=== PATIENT | male | born 1935 | race Caucasian/White ===

== ENCOUNTER 2024-09-09 12:55 | Inpatient (IN) | payer OTHER, MEDICARE ==
[2024-09-09] MEDS ORDERED: DEXTROSE 50%-WATER 25 GM/50 ML DISP.SYRIN ONE (13:15)
[2024-09-09] MEDS: DEXTROSE 50%-WATER - 25 GM/50 ML VIAL IVPUSH ONE (13:17)
[2024-09-09 13:28] VITALS: BMI 27.6
[2024-09-09] MEDS: DEXTROSE 50%-WATER 25 GM/50 ML DISP.SYRIN IVPUSH ONE (14:11)
[2024-09-09 14:22] LABS: ABSOLUTE IMMATURE GRANULOCYTES 0.05 x10^3/uL (0.0-0.031); BASOPHILS # 0.05 x10^3/uL (0.01-0.08); EOSINOPHIL % 3.7 % (0.8-7.0); EOSINOPHILS # 0.32 x10^3/uL (0.04-0.54); HEMATOCRIT 35.4 % (40.1-51.0); HEMOGLOBIN 11.3 g/dL (13.7-17.5); MCHC 31.9 g/dl (32.3-36.5); MEAN PLT VOLUME 8.7 fl (9.4-12.4); MONOCYTE % 3.4 % (5.3-12.2); PLATELET COUNT 389 x10^3/uL (163-337); RDW 15.1 % (12.6-16.6)
[2024-09-09 14:35] LABS: POTASSIUM 5.2 mmol/L (3.5-5.1)
[2024-09-09 14:38] LABS: BLOOD UREA NITROGEN 18.7 mg/dL (7-18); CALCIUM 8.3 mg/dL (8.5-10.1)
[2024-09-09 14:42] LABS: CREATININE 1.4 mg/dL (0.55-1.3)
[2024-09-09 14:43] LABS: BILIRUBIN,TOTAL 0.5 mg/dL (0.2-1); TOT PROT 7.5 g/dl (6.4-8.2)
[2024-09-09] MEDS ORDERED: PIPERACILLIN/TAZOB 4.5 GM 4.5 GM in DEXTROSE 5%-WATER 100 ML IVPB ONE (14:49)
[2024-09-09 15:11] LABS: EPI CELLS 4 /uL (0-25.1); HYALINE CASTS 2 /uL (0-3.1); PH,URINE 5.5 (5.0-8.0); URINE APPEARANCE CLEAR; URINE BACTERIA 204 /uL (0-1359); URINE BILIRUBIN NEGATIVE (NEGATIVE); URINE COLOR YELLOW; URINE GLUCOSE (UA) NEGATIVE (NEGATIVE); URINE KETONE TRACE (NEGATIVE); URINE LEUK ESTERASE 2+ (NEGATIVE); URINE NITRITE NEGATIVE (NEGATIVE); URINE PROTEIN 1+ (NEGATIVE); URINE RBC 32 /uL (0-23.9); URINE UROBILINOGEN 0.2 mg/dL (0.2-1.0); URINE WBC 842 /uL (0-25.8)
[2024-09-09] MEDS ORDERED: MEROPENEM 1 GM VIAL (RESTRICTED TO ID) IVPB ONE (15:37)
[2024-09-09] MEDS: MEROPENEM 1 GM in DEXTROSE 5%-WATER 100 ML IVPB ONE (15:42)
[2024-09-09] MEDS: VANCOMYCIN PREMIX 1.75 GM 1,750 MG/350 ML PIGGYBACK IVPB ONE (16:40)
[2024-09-09] MEDS: DEXTROSE 5%-NORMAL SALINE 1,000 ML IV SCH ×2 (18:12→18:13)
[2024-09-09 18:20] LABS: MAGNESIUM 1.6 mg/dL (1.8-2.4)
[2024-09-09] MEDS ORDERED: POLYETHYLENE GLYCOL (HEALTHYLAX) 3350 17 GM PACKET PO PRN (19:31)
[2024-09-09] MEDS ORDERED: ALBUTEROL SO4 0.5 % INH SOLN 2.5 MG/0.5 ML VIAL.NEB. NEB PRN (19:31)
[2024-09-09] MEDS ORDERED: INSULIN ASPART SLIDING SCALE (NOVOLOG) 1 VIAL SQ SCH (22:00)
[2024-09-09] MEDS: INSULIN ASPART SLIDING SCALE (NOVOLOG) 1 VIAL SQ SCH (22:13)
[2024-09-09] MEDS: DIVALPROEX SODIUM 125 MG TABLET E.C. PO SCH (22:13)
[2024-09-09] MEDS: ACETAMINOPHEN 325 MG TABLET (FP) PO SCH (22:14)
[2024-09-09] MEDS: ZINC OXIDE 20% TOPICAL OINTMENT 30 GM TUBE TP SCH (22:15)
[2024-09-10] MEDS: PIPERACILLIN/TAZOB 3.375 GM 50 ML IVPB SCH (03:01)
[2024-09-10 06:56] LABS: POTASSIUM 4.5 mmol/L (3.5-5.1)
[2024-09-10 06:58] LABS: CALCIUM 8.1 mg/dL (8.5-10.1)
[2024-09-10 06:59] LABS: BLOOD UREA NITROGEN 18.4 mg/dL (7-18); MAGNESIUM 1.4 mg/dL (1.8-2.4)
[2024-09-10 07:02] LABS: CREATININE 1.3 mg/dL (0.55-1.3); PHOSPHOROUS 2.9 mg/dL (2.5-4.9)
[2024-09-10 08:02] LABS: HEMATOCRIT 32.5 % (40.1-51.0); HEMOGLOBIN 10.1 g/dL (13.7-17.5); MCHC 31.1 g/dl (32.3-36.5); MEAN CELL VOLUME 92.6 fl (79.0-92.2); MEAN PLT VOLUME 8.8 fl (9.4-12.4); PLATELET COUNT 370 x10^3/uL (163-337); RDW 15.4 % (12.6-16.6)
[2024-09-10] MEDS: MAGNESIUM SULFATE IN WATER 2 GM/50 ML IVPB IVPB ONE (09:39)
[2024-09-10] MEDS: DIVALPROEX SODIUM 125 MG TABLET E.C. PO SCH (09:40)
[2024-09-10] MEDS: ENOXAPARIN NA (PORCINE) 40 MG/0.4 ML DISP.SYRIN SQ SCH (09:40)
[2024-09-10] MEDS: CEFTAZIDIME/AVIBACTAM 1.25 GM in DEXTROSE 5%-WATER - 100 ML IVPB SCH (14:41)
[2024-09-10] MEDS: PIPERACILLIN/TAZOB 3.375 GM 3.375 GM in DEXTROSE 5%-WATER - 50 ML IVPB SCH (14:42)
[2024-09-10] MEDS: DOXYCYCLINE INJECTION 100 MG in DEXTROSE 5%-WATER 100 ML IVPB SCH (14:51)
[2024-09-10] MEDS ORDERED: DEXTROSE 50%-WATER - 25 GM/50 ML VIAL IVPUSH PRN (14:53)
[2024-09-10 15:35] VITALS: RESP 18
[2024-09-10] MEDS: SODIUM CHLORIDE 1,000 ML IV STA (16:02)
[2024-09-10] MEDS: CEFTRIAXONE 1 G/50 ML PREMIX 50 ML IVPB SCH (18:02)
[2024-09-10] MEDS: SILVER SULFADIAZINE 1% TOP CREAM 50 GM JAR TP SCH (18:02)
[2024-09-10] MEDS: LORazepam 2 MG/ML SDV VIAL IVPUSH PRN (20:21)
[2024-09-10] MEDS ORDERED: levETIRAcetam 500 MG TABLET (FP) PO SCH (22:00)
[2024-09-11 06:47] LABS: HEMATOCRIT 32.4 % (40.1-51.0); HEMOGLOBIN 10.2 g/dL (13.7-17.5); MCHC 31.5 g/dl (32.3-36.5); MEAN CELL VOLUME 90.3 fl (79.0-92.2); MEAN PLT VOLUME 8.6 fl (9.4-12.4); PLATELET COUNT 348 x10^3/uL (163-337); RDW 14.9 % (12.6-16.6)
[2024-09-11 06:50] LABS: POTASSIUM 4.3 mmol/L (3.5-5.1)
[2024-09-11 06:52] LABS: ALBUMIN 1.8 g/dl (3.4-5.0)
[2024-09-11 06:53] LABS: BLOOD UREA NITROGEN 16.1 mg/dL (7-18)
[2024-09-11 06:56] LABS: CREATININE 1.1 mg/dL (0.55-1.3)
[2024-09-11 06:57] LABS: BILIRUBIN,TOTAL 0.2 mg/dL (0.2-1)
[2024-09-11] MEDS: LORazepam 2 MG/ML SDV VIAL IVPUSH ONE (09:20)
[2024-09-11 15:36] VITALS: BP 136/69; PULSE 83; TEMP 98.2
== END 2024-09-11 15:36 | DRG 100 ==
LOC: JER 12:55 → JERBED 16:27 → J4W 19:36 → OBSVTOIN 09-10 11:16
PROVIDERS: ADMIT Student in an Organized Health Care Education/Training Program; ATTEND Internal Medicine
DX: G40.89 Other seizures (principal); J18.9 Pneumonia, unspecified organism; F03.90 Unspecified dementia, unspecified severity, without behavioral disturbance, psychotic disturbance, mood disturbance, and anxiety; N18.30 Chronic kidney disease, stage 3 unspecified; E11.649 Type 2 diabetes mellitus with hypoglycemia without coma; E11.22 Type 2 diabetes mellitus with diabetic chronic kidney disease; F31.9 Bipolar disorder, unspecified; L89.152 Pressure ulcer of sacral region, stage 2
CPT/HCPCS: 0241U-QW; 36415; 70450-TC; 71045-TC-FY; 74230-TC-FY; 80048; 80053; 80164; 81003; 82140; 82550; 82962; 83036; 83605; 83735; 84100; 84484; 85025; 85027; 86850; 86900; 86901; 87040; 87081; 87086; 92611-GN; 93005; 93010; 95816; 99285-25; G0378; J3370

== ENCOUNTER 2024-10-20 18:41 | Inpatient (IN) | payer OTHER, MEDICARE ==
[2024-10-20] MEDS ORDERED: ACETAMINOPHEN 325 MG TABLET (FP) ONE (20:16)
[2024-10-20] MEDS ORDERED: ACETAMINOPHEN INJECTION 100 ML ONE (20:23)
[2024-10-20] MEDS: ACETAMINOPHEN 325 MG TABLET (FP) PO ONE (20:35)
[2024-10-20] MEDS: ACETAMINOPHEN 1000 MG/100 ML BAG IVPB ONE (20:35)
[2024-10-20 20:45] LABS: HEMATOCRIT 30.9 % (40.1-51.0); HEMOGLOBIN 10.1 g/dL (13.7-17.5); MCHC 32.7 g/dl (32.3-36.5); MEAN CELL VOLUME 90.6 fl (79.0-92.2); MEAN PLT VOLUME 8.8 fl (9.4-12.4); PLATELET COUNT 556 x10^3/uL (163-337); RDW 15.5 % (12.6-16.6)
[2024-10-20 21:04] LABS: POTASSIUM 5.1 mmol/L (3.5-5.1)
[2024-10-20 21:06] LABS: CALCIUM 8.4 mg/dL (8.5-10.1)
[2024-10-20 21:07] LABS: ALBUMIN 1.7 g/dl (3.4-5.0); BLOOD UREA NITROGEN 47.9 mg/dL (7-18)
[2024-10-20 21:10] LABS: CREATININE 1.7 mg/dL (0.55-1.3)
[2024-10-20 21:11] LABS: BILIRUBIN,TOTAL 0.2 mg/dL (0.2-1)
[2024-10-20 21:39] LABS: EPI CELLS >36 /uL (0-25.1); HYALINE CASTS 11 /uL (0-3.1); PH,URINE 5.5 (5.0-8.0); URINE APPEARANCE TURBID; URINE BACTERIA 379 /uL (0-1359); URINE BILIRUBIN NEGATIVE (NEGATIVE); URINE COLOR YELLOW; URINE GLUCOSE (UA) TRACE (NEGATIVE); URINE KETONE NEGATIVE (NEGATIVE); URINE LEUK ESTERASE 3+ (NEGATIVE); URINE NITRITE NEGATIVE (NEGATIVE); URINE PROTEIN 2+ (NEGATIVE); URINE WBC 6758 /uL (0-25.8)
[2024-10-20] MEDS: SODIUM CHLORIDE 1,000 ML IV STA (22:31)
[2024-10-20 22:47] LABS: URINE RBC 872.5 /uL (0-23.9); YEAST NONE SEEN (NEGATIVE)
[2024-10-20] MEDS ORDERED: PIPERACILLIN/TAZOB 2.25 GM 2.25 GM/50 ML BAG IVPB ONE (23:11)
[2024-10-20] MEDS: PIPERACILLIN/TAZOB 2.25 GM 2.25 GM in DEXTROSE 5%-WATER - 50 ML IVPB ONE (23:14)
[2024-10-21] MEDS: MELATONIN 5 MG TABLETS PO PRN (02:07)
[2024-10-21] MEDS: ACETAMINOPHEN 1000 MG/100 ML BAG IVPB PRN (02:07)
[2024-10-21] MEDS: SODIUM CHLORIDE 1,000 ML IV SCH (05:02)
[2024-10-21] MEDS: INSULIN ASPART SLIDING SCALE (NOVOLOG) 1 VIAL SQ SCH ×2 (05:59→08:05)
[2024-10-21] MEDS ORDERED: HEPARIN NA (PORCINE) 5,000 UNITS/ML 1ML VIAL SQ SCH (06:00)
[2024-10-21 09:28] LABS: ABSOLUTE IMMATURE GRANULOCYTES 0.28 x10^3/uL (0.0-0.031); BASOPHILS # 0.12 x10^3/uL (0.01-0.08); EOSINOPHIL % 5.3 % (0.8-7.0); EOSINOPHILS # 0.92 x10^3/uL (0.04-0.54); HEMATOCRIT 28.9 % (40.1-51.0); HEMOGLOBIN 9.2 g/dL (13.7-17.5); MCHC 31.8 g/dl (32.3-36.5); MEAN CELL VOLUME 90.9 fl (79.0-92.2); MEAN PLT VOLUME 8.8 fl (9.4-12.4); MONOCYTE # 0.71 x10^3/uL (0.30-0.82); MONOCYTE % 4.1 % (5.3-12.2); PLATELET COUNT 549 x10^3/uL (163-337); RDW 15.5 % (12.6-16.6)
[2024-10-21 09:55] LABS: POTASSIUM 4.3 mmol/L (3.5-5.1)
[2024-10-21] MEDS ORDERED: amLODIPine BESYLATE 2.5 MG TABLET (FP) PO SCH (10:00)
[2024-10-21 10:05] LABS: HDL CHOLESTEROL 18 mg/dL (40-60)
[2024-10-21 10:07] LABS: CHOLESTEROL 86 mg/dL (50-200); LDL CHOLESTEROL (ONLY SJRH) 50 mg/dL (5-100)
[2024-10-21] MEDS: HEPARIN NA (PORCINE) 5,000 UNITS/ML 1ML VIAL SQ SCH (10:09)
[2024-10-21] MEDS: DIVALPROEX SODIUM 125 MG TABLET E.C. PO SCH ×2 (10:09→22:20)
[2024-10-21 10:14] LABS: ALBUMIN 1.6 g/dl (3.4-5.0); BLOOD UREA NITROGEN 41.9 mg/dL (7-18); CREATININE 1.3 mg/dL (0.55-1.3)
[2024-10-21 10:15] LABS: TOT PROT 5.7 g/dl (6.4-8.2)
[2024-10-21 10:16] LABS: MAGNESIUM 1.4 mg/dL (1.8-2.4); PHOSPHOROUS 2.6 mg/dL (2.5-4.9)
[2024-10-21 10:17] LABS: CALCIUM 8.4 mg/dL (8.5-10.1)
[2024-10-21 10:23] LABS: BILIRUBIN,TOTAL 0.4 mg/dL (0.2-1)
[2024-10-21 10:36] VITALS: BMI 20.5
[2024-10-21] MEDS: PIPERACILLIN/TAZOB 2.25 GM 2.25 GM/50 ML BAG IVPB SCH (10:50)
[2024-10-21] MEDS: PIPERACILLIN/TAZOB 2.25 GM 2.25 GM in DEXTROSE 5%-WATER - 50 ML IVPB SCH (13:33)
[2024-10-21] MEDS: MAGNESIUM 2GM/50ML STERILE WATER IVPB IVPB ONE (13:53)
[2024-10-21] MEDS: VANCOMYCIN 1 GM PREMIX (F) 1 GM/200 ML BAG IVPB SCH (15:12)
[2024-10-21] MEDS ORDERED: hydrOXYzine PAMOATE 50 MG CAPSULE (FP) PO PRN (16:50)
[2024-10-21] MEDS: PIPERACILLIN/TAZOB 3.375 GM 50 ML IVPB SCH (17:58)
[2024-10-21] MEDS ORDERED: hydrOXYzine PAMOATE 25 MG CAPSULE (FP) PO ONE (18:46)
[2024-10-21] MEDS: hydrOXYzine PAMOATE 25 MG CAPSULE (FP) PO PRN (18:50)
[2024-10-21] MEDS: DONEPEZIL HCL 5 MG TABLET (FP) PO SCH (22:15)
[2024-10-21] MEDS: diphenhydrAMINE HCL 25 MG CAPSULE (FP) PO ONE (22:28)
[2024-10-22] MEDS: hydrOXYzine PAMOATE 25 MG CAPSULE (FP) PO PRN (06:49)
[2024-10-22 09:05] LABS: HEMATOCRIT 31.3 % (40.1-51.0); MCHC 31.9 g/dl (32.3-36.5); MEAN CELL VOLUME 92.3 fl (79.0-92.2); MEAN PLT VOLUME 8.6 fl (9.4-12.4); PLATELET COUNT 599 x10^3/uL (163-337); RDW 15.3 % (12.6-16.6)
[2024-10-22 09:23] LABS: POTASSIUM 4.8 mmol/L (3.5-5.1)
[2024-10-22 09:30] LABS: CALCIUM 8.7 mg/dL (8.5-10.1)
[2024-10-22 09:31] LABS: ALBUMIN 1.8 g/dl (3.4-5.0); BLOOD UREA NITROGEN 34.5 mg/dL (7-18); MAGNESIUM 2.1 mg/dL (1.8-2.4)
[2024-10-22 09:34] LABS: PHOSPHOROUS 3.3 mg/dL (2.5-4.9)
[2024-10-22 09:35] LABS: CREATININE 1.5 mg/dL (0.55-1.3)
[2024-10-22 09:36] LABS: BILIRUBIN,TOTAL 0.4 mg/dL (0.2-1)
[2024-10-22] MEDS: SODIUM CHLORIDE 1,000 ML IV STA (09:38)
[2024-10-23 09:59] LABS: HEMATOCRIT 31.3 % (40.1-51.0); HEMOGLOBIN 9.7 g/dL (13.7-17.5); MEAN CELL VOLUME 93.2 fl (79.0-92.2); MEAN PLT VOLUME 8.6 fl (9.4-12.4); PLATELET COUNT 598 x10^3/uL (163-337); RDW 15.2 % (12.6-16.6)
[2024-10-23 10:21] LABS: POTASSIUM 4.6 mmol/L (3.5-5.1)
[2024-10-23 10:22] LABS: ALBUMIN 1.6 g/dl (3.4-5.0); CALCIUM 8.6 mg/dL (8.5-10.1); MAGNESIUM 1.6 mg/dL (1.8-2.4)
[2024-10-23 10:26] LABS: CREATININE 1.4 mg/dL (0.55-1.3); PHOSPHOROUS 2.9 mg/dL (2.5-4.9)
[2024-10-23 10:27] LABS: BILIRUBIN,TOTAL 0.3 mg/dL (0.2-1); TOT PROT 5.8 g/dl (6.4-8.2)
[2024-10-23] MEDS: MAGNESIUM OXIDE 400 MG TABLET (FP) PO ONE (11:47)
[2024-10-23] MEDS: MAGNESIUM SULF 50% (8.12 MEQ/2 ML-1 GM VIAL) IVPB ONE (11:51)
[2024-10-23 12:33] VITALS: TEMP 97.7
[2024-10-23 14:46] VITALS: BP 110/58; PULSE 78; RESP 16
== END 2024-10-23 15:41 | DRG 727 ==
LOC: JER 18:41 → JERBED 23:18 → J5S 10-21 01:18
PROVIDERS: ADMIT Student in an Organized Health Care Education/Training Program; ATTEND Internal Medicine
DX: N45.2 Orchitis (principal); E43 Unspecified severe protein-calorie malnutrition; N17.9 Acute kidney failure, unspecified; N39.0 Urinary tract infection, site not specified; F03.911 Unspecified dementia, unspecified severity, with agitation; J44.9 Chronic obstructive pulmonary disease, unspecified; N18.30 Chronic kidney disease, stage 3 unspecified; N43.3 Hydrocele, unspecified; D50.9 Iron deficiency anemia, unspecified; I12.9 Hypertensive chronic kidney disease with stage 1 through stage 4 chronic kidney disease, or unspecified chronic kidney disease; E11.22 Type 2 diabetes mellitus with diabetic chronic kidney disease; N18.9 Chronic kidney disease, unspecified; Z68.20 Body mass index [BMI] 20.0-20.9, adult; N45.1 Epididymitis
CPT/HCPCS: 36415; 72192-TC; 76870-TC; 80053; 80061; 81003; 82105; 82962; 83036; 83615; 83735; 84100; 85025; 85027; 86780; 87040; 87086; 87491; 87591; 99285-25; J0131; J1644

== ENCOUNTER 2024-11-20 10:53 | Inpatient (IN) | payer OTHER, MEDICARE ==
[2024-11-20 12:40] LABS: ABSOLUTE IMMATURE GRANULOCYTES 0.03 x10^3/uL (0.0-0.031); BASOPHILS # 0.05 x10^3/uL (0.01-0.08); EOSINOPHIL % 3.6 % (0.8-7.0); EOSINOPHILS # 0.35 x10^3/uL (0.04-0.54); HEMOGLOBIN 12.7 g/dL (13.7-17.5); MCHC 32.6 g/dl (32.3-36.5); MEAN CELL VOLUME 92.6 fl (79.0-92.2); MEAN PLT VOLUME 8.9 fl (9.4-12.4); MONOCYTE # 0.61 x10^3/uL (0.30-0.82); MONOCYTE % 6.4 % (5.3-12.2); PLATELET COUNT 307 x10^3/uL (163-337); RDW 15.8 % (12.6-16.6)
[2024-11-20 13:05] LABS: POTASSIUM 4.7 mmol/L (3.5-5.1)
[2024-11-20 13:08] LABS: BLOOD UREA NITROGEN 41.7 mg/dL (7-18); CALCIUM 9.6 mg/dL (8.5-10.1)
[2024-11-20] MEDS ORDERED: PIPERACILLIN/TAZOB 3.375 GM 3.375 GM/50 ML BAG IVPB ONE (13:09)
[2024-11-20 13:12] LABS: BILIRUBIN,TOTAL 0.3 mg/dL (0.2-1); CREATININE 1.5 mg/dL (0.55-1.3); TOT PROT 7.6 g/dl (6.4-8.2)
[2024-11-20 13:20] LABS: ERYTHROCYTE SEDIMENTATION RATE 37 mm/hr (0-20)
[2024-11-20] MEDS: PIPERACILLIN/TAZOB 3.375 GM 3.375 GM in DEXTROSE 5%-WATER - 50 ML IVPB ONE ×2 (13:24)
[2024-11-20] MEDS ORDERED: VANCOMYCIN 1 GM PREMIX (F) 1 GM/200 ML BAG ONE (13:39)
[2024-11-20] MEDS: VANCOMYCIN 1,000 MG in DEXTROSE 5%-WATER - 250 ML IVPB ONE (13:50)
[2024-11-20] MEDS ORDERED: MINERAL OIL/PETROLAT/WATER TOPICAL CREAM 454 GM JAR TP PRN (16:41)
[2024-11-20] MEDS: LORATADINE 10 MG TABLET PO SCH (17:43)
[2024-11-20] MEDS: FUROSEMIDE 40 MG/4 ML INJECTABLE VIAL IVPUSH SCH (17:43)
[2024-11-20 21:05] LABS: HIV INTERPRETATION NEGATIVE (NEGATIVE)
[2024-11-20 21:06] LABS: HCV DIAGNOSTIC IN-HOUSE W/RFLX NON-REACTIVE (NONREACTIVE)
[2024-11-20] MEDS: MINERAL OIL/PETROLAT/WATER TOPICAL CREAM 454 GM JAR TP PRN (23:42)
[2024-11-21] MEDS: INSULIN ASPART SLIDING SCALE (NOVOLOG) 1 VIAL SQ SCH (06:37)
[2024-11-21 09:11] LABS: ABSOLUTE IMMATURE GRANULOCYTES 0.02 x10^3/uL (0.0-0.031); BASOPHILS # 0.06 x10^3/uL (0.01-0.08); EOSINOPHIL % 6.7 % (0.8-7.0); HEMATOCRIT 34.7 % (40.1-51.0); HEMOGLOBIN 11.6 g/dL (13.7-17.5); MCHC 33.4 g/dl (32.3-36.5); MEAN CELL VOLUME 89.9 fl (79.0-92.2); MEAN PLT VOLUME 8.9 fl (9.4-12.4); MONOCYTE # 0.62 x10^3/uL (0.30-0.82); MONOCYTE % 8.3 % (5.3-12.2); PLATELET COUNT 262 x10^3/uL (163-337); RDW 15.5 % (12.6-16.6)
[2024-11-21] MEDS ORDERED: ENOXAPARIN NA (PORCINE) 40 MG/0.4 ML DISP.SYRIN SQ SCH (10:00)
[2024-11-21] MEDS: ENOXAPARIN NA (PORCINE) 30 MG/0.3 ML DISP.SYRIN SQ SCH (10:30)
[2024-11-21] MEDS: amLODIPine BESYLATE 2.5 MG TABLET (FP) PO SCH (10:33)
[2024-11-21 19:51] LABS: EPI CELLS 13 /uL (0-25.1); HYALINE CASTS 0 /uL (0-3.1); PH,URINE >= 9.0 (5.0-8.0); URINE APPEARANCE CLEAR; URINE BILIRUBIN NEGATIVE (NEGATIVE); URINE COLOR YELLOW; URINE GLUCOSE (UA) NEGATIVE (NEGATIVE); URINE KETONE NEGATIVE (NEGATIVE); URINE LEUK ESTERASE 1+ (NEGATIVE); URINE NITRITE POSITIVE (NEGATIVE); URINE PROTEIN 1+ (NEGATIVE); URINE RBC 15 /uL (0-23.9); URINE UROBILINOGEN 0.2 mg/dL (0.2-1.0); URINE WBC 47 /uL (0-25.8)
[2024-11-21] MEDS: DONEPEZIL HCL 5 MG TABLET (FP) PO SCH (21:22)
[2024-11-21] MEDS: DIVALPROEX SODIUM 250 MG TABLET E.C. PO SCH (21:23)
[2024-11-21] MEDS: CEFAZOLIN 1 GM/D5W 1 GM/50 ML BAG IVPB SCH (21:23)
[2024-11-22 06:41] LABS: URINE BACTERIA 4.7 /uL (0-1359)
[2024-11-22 08:44] LABS: ABSOLUTE IMMATURE GRANULOCYTES 0.02 x10^3/uL (0.0-0.031); BASOPHILS # 0.06 x10^3/uL (0.01-0.08); EOSINOPHIL % 6.3 % (0.8-7.0); EOSINOPHILS # 0.46 x10^3/uL (0.04-0.54); HEMATOCRIT 37.1 % (40.1-51.0); HEMOGLOBIN 11.9 g/dL (13.7-17.5); MCHC 32.1 g/dl (32.3-36.5); MEAN CELL VOLUME 91.6 fl (79.0-92.2); MONOCYTE # 0.69 x10^3/uL (0.30-0.82); MONOCYTE % 9.4 % (5.3-12.2); PLATELET COUNT 281 x10^3/uL (163-337); RDW 15.6 % (12.6-16.6)
[2024-11-22 09:17] LABS: ALBUMIN 2.6 g/dl (3.4-5.0); BLOOD UREA NITROGEN 39.8 mg/dL (7-18); CALCIUM 8.7 mg/dL (8.5-10.1)
[2024-11-22 09:21] LABS: CREATININE 1.5 mg/dL (0.55-1.3)
[2024-11-22 09:22] LABS: BILIRUBIN,TOTAL 0.4 mg/dL (0.2-1)
[2024-11-22 09:23] LABS: TOT PROT 6.5 g/dl (6.4-8.2)
[2024-11-22] MEDS: DIVALPROEX SODIUM 125 MG TABLET E.C. PO SCH (09:52)
[2024-11-22] MEDS: LACTULOSE 20 GM/30 ML UDC (FOR ORAL USE ONLY) PO SCH (09:52)
[2024-11-22] MEDS ORDERED: CLOBETASOL PROPIONATE 15 GM CREAM TP SCH ×2 (10:00→11:00)
[2024-11-22] MEDS: CLOBETASOL PROPIONATE 15 GM CREAM TP SCH (17:02)
[2024-11-22 19:09] VITALS: RESP 18
[2024-11-23 08:59] LABS: ABSOLUTE IMMATURE GRANULOCYTES 0.03 x10^3/uL (0.0-0.031); BASOPHILS # 0.06 x10^3/uL (0.01-0.08); EOSINOPHIL % 8.8 % (0.8-7.0); EOSINOPHILS # 0.74 x10^3/uL (0.04-0.54); HEMOGLOBIN 11.6 g/dL (13.7-17.5); MCHC 33.1 g/dl (32.3-36.5); MEAN CELL VOLUME 91.1 fl (79.0-92.2); MEAN PLT VOLUME 9.1 fl (9.4-12.4); MONOCYTE # 0.66 x10^3/uL (0.30-0.82); MONOCYTE % 7.9 % (5.3-12.2); PLATELET COUNT 301 x10^3/uL (163-337); RDW 15.3 % (12.6-16.6)
[2024-11-23 09:15] LABS: POTASSIUM 3.4 mmol/L (3.5-5.1)
[2024-11-23 09:22] LABS: ALBUMIN 2.6 g/dl (3.4-5.0); BLOOD UREA NITROGEN 31.7 mg/dL (7-18); CALCIUM 8.5 mg/dL (8.5-10.1)
[2024-11-23 09:25] LABS: BILIRUBIN,TOTAL 0.3 mg/dL (0.2-1); CREATININE 1.3 mg/dL (0.55-1.3); TOT PROT 6.4 g/dl (6.4-8.2)
[2024-11-23 10:00] LABS: ERYTHROCYTE SEDIMENTATION RATE 41 mm/hr (0-20)
[2024-11-24 11:22] LABS: HEMATOCRIT 33.8 % (40.1-51.0); MCHC 32.5 g/dl (32.3-36.5); MEAN CELL VOLUME 91.6 fl (79.0-92.2); MEAN PLT VOLUME 9.1 fl (9.4-12.4); PLATELET COUNT 282 x10^3/uL (163-337); RDW 15.1 % (12.6-16.6)
[2024-11-24] MEDS: FUROSEMIDE 40 MG TABLET (FP) PO SCH (11:36)
[2024-11-24 11:42] LABS: POTASSIUM 3.9 mmol/L (3.5-5.1)
[2024-11-24 11:44] LABS: ALBUMIN 2.4 g/dl (3.4-5.0)
[2024-11-24 11:45] LABS: BLOOD UREA NITROGEN 33.3 mg/dL (7-18)
[2024-11-24 11:49] LABS: CREATININE 1.4 mg/dL (0.55-1.3)
[2024-11-24 11:50] LABS: BILIRUBIN,TOTAL 0.3 mg/dL (0.2-1); TOT PROT 6.1 g/dl (6.4-8.2)
[2024-11-24 12:10] LABS: N-TERMINAL BNP 759.2 pg/ml (5-450)
[2024-11-24] MEDS: CEPHALEXIN MONOHYDRATE 500 MG CAPSULE (UD) PO SCH (23:30)
[2024-11-25 23:39] VITALS: BMI 17.0
[2024-11-26 12:00] VITALS: BP 109/79; PULSE 78; TEMP 98.1
== END 2024-11-26 14:42 | disposition home or self-care (01) | DRG 603 ==
LOC: JER 10:53 → JERBED 13:26 → J6S 14:52
PROVIDERS: ATTEND Internal Medicine
DX: L03.116 Cellulitis of left lower limb (principal); I50.22 Chronic systolic (congestive) heart failure; E46 Unspecified protein-calorie malnutrition; Z68.1 Body mass index [BMI] 19.9 or less, adult; L12.0 Bullous pemphigoid; E44.0 Moderate protein-calorie malnutrition; I13.0 Hypertensive heart and chronic kidney disease with heart failure and stage 1 through stage 4 chronic kidney disease, or unspecified chronic kidney disease; F03.918 Unspecified dementia, unspecified severity, with other behavioral disturbance; L03.115 Cellulitis of right lower limb; E11.9 Type 2 diabetes mellitus without complications; N18.30 Chronic kidney disease, stage 3 unspecified; J44.9 Chronic obstructive pulmonary disease, unspecified; I48.91 Unspecified atrial fibrillation; D50.9 Iron deficiency anemia, unspecified; R33.9 Retention of urine, unspecified
CPT/HCPCS: 36415; 76775-TC; 76856-TC; 80053; 81003; 82962; 83880; 84443; 85025; 85027; 85651; 86140; 86803; 87040; 87389; 93005; 93010; 93306-TC; 97162-GP; 99285-25